=== PATIENT | male | born 1940 | race Caucasian/White ===

== ENCOUNTER 2017-06-08 14:40 | Observation (INO) | payer MEDICARE ==
--- NOTE | 2017-06-08 16:04 | RAD ---
PORTABLE AP CHEST RADIOGRAPH: Date: 06-08-17 History: Nausea, vomiting, vertigo. Comparison: 06-08-17 FINDINGS: Cardiac silhouette and pulmonary vasculature are within normal limits. The lungs are clear. Elevation right hemidiaphragm is again present. Post-surgical change related to anterior cervical fusion noted . Vascular calcification is seen in the thoracic aorta. IMPRESSION: No acute cardiopulmonary process. POS: [facility]
[2017-06-08 16:31] LABS: #Eosinphils 0.1 thou/uL (0.0-0.7); #Lymphocytes 1.7 thou/uL (1.20-3.40); #Monocytes 0.4 thou/uL (0.11-0.59); #Neutrophils 7.1 thou/uL (1.40-6.50); %Basophils 0.2 % (0.0-1.0); %Eosinophils 0.6 % (0.0-10.0); %Lymphocytes 18.2 % (21.0-51.0); %Monocytes 3.8 % (0.0-10.0); %Neutrophils 77.2 % (42.0-75.0); Hemoglobin 15.5 g/dL (14.0-18.0); Mean Corpuscular HGB CONC 33.1 g/dL (32.0-36.0); Mean Corpuscular Hemoglobin 30.8 pg (27.0-31.0); Mean Corpuscular Volume 93.1 fl (80.0-94.0); Mean Platelet Volume 7.8 fL (7.4-10.4); Platelet Count 239 thou/uL (130-400); RBC Distribution Width 12.8 % (11.5-14.5); Red Blood Cell (RBC) Count 5.03 mill/uL (4.70-6.10); White Blood Cell (WBC) Count 9.2 thou/uL (4.8-10.8)
[2017-06-08 17:01] LABS: ALT (SGPT) 13 U/L (8-55); AST (SGOT) 17 U/L (5-34); Alkaline Phosphatase 144 U/L (40-150); Anion Gap 10 mmol/L (10-20); BUN (Urea Nitrogen) 11 mg/dL (8.4-25.7); Bilirubin, Total 0.6 mg/dL (0.2-1.2); CK (CPK) 84 U/L (30-200); Calc. Creatinine Clearance 0 mL/min (70-130); Calcium 9.3 mg/dL (7.8-10.44); Carbon Dioxide 27 mmol/L (23-31); Chloride 106 mmol/L (98-107); Estimated GFR-MDRD 85; Globulin 3.3 g/dL (2.4-3.5); Glucose 105 mg/dL (83-110); Potassium 4.4 mmol/L (3.5-5.1); Protein, Total 7.3 g/dL (5.8-8.1); Sodium 139 mmol/L (136-145)
[2017-06-08 17:03] LABS: CKMB 2.7 ng/mL (0-6.6); Troponin I Less than 0.010 ng/mL (< 0.028)
[2017-06-08] MEDS ORDERED: Ondansetron ODT 4 MG TAB SL PRN (19:39)
[2017-06-08] MEDS ORDERED: Acetaminophen 325 MG TAB PO PRN ×2 (19:39→20:12)
[2017-06-08] MEDS ORDERED: HYDROcodone/Acetaminophen 5/325 mg Tablet PO PRN ×2 (19:39)
[2017-06-08] MEDS ORDERED: Ondansetron HCl/PF 4 MG/2 ML Vial IVP PRN (19:39)
[2017-06-08] MEDS ORDERED: Meclizine HCl 12.5 MG TAB PO PRN (20:12)
[2017-06-08] MEDS ORDERED: Ondansetron ODT 4 MG TAB PO PRN (20:12)
[2017-06-08] MEDS ORDERED: Enoxaparin Sodium 30 MG/0.3 ML SYRINGE SC SCH (20:12)
[2017-06-08] MEDS ORDERED: Dorzolamide HCl/Timolol Maleate 2%/0.5% Ophth Soln 10 ml Bottle EA EYE SCH (21:00)
--- NOTE | 2017-06-08 21:32 | PDOC.EVN ---
Event Note - Event Note Event Note: Attending H&P I personally evaluated the patient and discussed the management with Dr. Gresham. The written H&P is repeated by me. I agree with the History, Examination, Assessment and Plan documented above with any addition or exceptions noted below. While his vertigo may be Benign Postional Vertigo, an acute cerebellar CVA is in the differential dx. MRI planned for tomorrow. he as in A fib at presentation and non compliant with his a-fib meds, he is now in sinus rhythm on telemetry.
[2017-06-08] MEDS: Lisinopril 20 MG TAB PO SCH (21:59)
[2017-06-08] MEDS: Pravastatin Sodium 40 MG TAB PO SCH (22:00)
[2017-06-08] MEDS: Sodium Chloride 0.9% 1,000 ML IV SCH (22:01)
[2017-06-08] MEDS: Brimonidine Tartrate 0.2% Ophth Soln 5 ml Bottle EA EYE SCH (22:01)
[2017-06-08] MEDS: Latanoprost 0.005% Ophth Soln 2.5 ml Bottle EA EYE SCH (22:02)
[2017-06-08 23:05] VITALS: BMI 31.4
--- NOTE | 2017-06-09 02:06 | HP-2 ---
CODE STATUS: FULL. PRIMARY CARE PHYSICIAN: Dr. French. ATTENDING: Dr. Dipak Gauthier. RESIDENT: Dr. Madina Alvarado. CHIEF COMPLAINT: Dizziness. HISTORY OF PRESENT ILLNESS: This is a 76-year-old male with past medical history of atrial fibrillation, hypertension, noncompliant on medications that presents with dizziness. 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 He said that he closed his eyes and sat still for a period of several minutes before it resolved. He continued on with his daily activities and then when he went to get on his ATV to drive off to do something else, the dizziness returned and again presented as if his surroundings were spinning. He again stopped the vehicle and closed his eyes and rested for a period of several minutes and the dizziness did resolve. It is also associated with nausea, but no vomiting was reported. Patient states that years ago he experienced something similar in the past for which he took meclizine at that time and it did seem to resolve the issue. Of note, last night, he states that he felt like there was some fluid in his right ear that did make him feel a bit dizzy as well. He denies any headaches or vision changes, weakness, or slurred speech associated with episode. Currently, he is not experiencing any vertigo. He was sent over from [facility] due to concerns for a posterior infarct secondary to noncompliance with his atrial fibrillation medications and his history of hypertension. PAST MEDICAL HISTORY: 1. Atrial fibrillation. 2. Hypertension. 3. Osteoarthritis. 4. Hyperlipidemia. PAST SURGICAL HISTORY: 1. Hernia repair. 2. Corneal transplant. 3. C-spine fusion. ALLERGIES: Reported allergy includes PRED FORTE. MEDICATIONS: 1. Acetaminophen 325 mg two tablets p.o. q.6 hours p.r.n. 2. Brimonidine tartrate 1 drop each eye b.i.d. 3. Diltiazem HCL extended release 180 mg p.o. at bedtime. 4. Dorzolamide HCL/timolol maleate 1 drop each eye b.i.d. 5. Latanoprost 1 drop each eye at bedtime. 6. Lisinopril 20 mg tablet p.o. at bedtime. 7. Pravastatin 40 mg p.o. at bedtime. FAMILY HISTORY: Noncontributory. SOCIAL HISTORY: The patient denies tobacco, alcohol, or drug use. REVIEW OF SYSTEMS: A 12 point review of systems was performed, all were negative except as listed in the HPI. PHYSICAL EXAMINATION: VITAL SIGNS: Blood pressure 124/77, pulse 68, respiratory rate 21, pulse ox 100 % on 2 liters. GENERAL: Patient is alert and oriented x3, no acute distress. Well-developed, well-nourished, appropriately interactive. HEENT: Pupils are equally round and reactive to light and accommodation. Extraocular muscles intact. Conjunctivae within normal limits. ENT: Tympanic membranes pearly christopher without bulging or erythema. Nasal mucosa within normal limits. Oropharynx within normal limits. NECK: Supple. CARDIOVASCULAR: Irregular rhythm. No murmurs or gallops. Radial and pedal pulses 2+. RESPIRATORY: Normal effort, no retractions, clear to auscultation bilaterally. SKIN: Warm and dry. No cyanosis or lesions. ABDOMEN: Soft, nontender to palpation. Bowel sounds positive in all 4 quadrants. No masses or distended. EXTREMITIES: No clubbing, cyanosis, or edema. MUSCULOSKELETAL: Structure is within normal limits. Tone is within normal limit. Muscle strength 5/5. NEUROLOGIC: No focal deficits. Cranial nerves II-XII intact. GCS 15. There is some nystagmus with horizontal gaze to the left and with rightward tick. PSYCHIATRIC: Appropriate. LABORATORY DATA: 1. CBC reveals white blood count 9.2, hemoglobin 15.5, hematocrit 40.8, platelets 239. 2. CMP: Sodium 140, potassium 4.5, chloride 108, bicarb 19, BUN 14, creatinine 0.98, glucose 142, calcium 9.1, total protein 7.4, albumin 4.2, AST 17, ALT 15, alkaline phosphatase 144, total bilirubin 0.6. 3. CK 2.7, troponin less than 0.010. IMAGIN. Chest x-ray no acute process. 2. Brain CT, mild chronic small vessel disease, no acute intracranial abnormalities. ASSESSMENT AND PLAN: This is a 76-year-old male with past medical history of atrial fibrillation and hypertension, noncompliant on medications, presents with dizziness. 1. Vertigo, likely secondary to benign paroxysmal positional vertigo, but cannot rule out posterior infarct. Patient admitted to telemetry for observation. CT of the brain was negative for any acute findings. Dr. French does indicate it has been going on for several years and it is intermittent and worse with movement. We will schedule meclizine p.r.n. MRI of the brain in the morning to rule out posterior infarct. Patient was not actively having vertigo at this time so deferred HINTs exam. Notified night team that if vertigo returns that it might be worthwhile to perform this exam. Patient did have positive nystagmus with left horizontal gaze. Can attempt Alicia's maneuver in the morning. We will obtain an EKG. A consult has been put in for PT to evaluate and treat patient. 2. Hypertension. Continue home medications. 3. Atrial fibrillation. Patient is noncompliant with anticoagulation. We will start Lovenox and determine a good medication to start patient on for a chcf anticoagulation. We will continue aspirin and diltiazem at this time. 4. Osteoarthritis. Tylenol or ibuprofen as needed for pain. 5. Deep venous thrombosis prophylaxis. Lovenox. DISPOSITION AND LENGTH OF HOSPITAL STAY: 2 days. Symptomatic medication will be provided. History and physical exam as well as management discussed with Dr. Dipak Gauthier. ANN
[2017-06-09] MEDS: Sodium Chloride 0.9% 1,000 ML IV SCH ×2 (05:55→15:25)
--- NOTE | 2017-06-09 06:19 | PDOC.FM ---
- Subjective Subjective: Mr. Palma is feeling well this morning. He is very concerned about cost of hospitalization and inquiring about ability to perform MRI outpatient. He denies any dizziness, N/V or "spells" overnight. This morning, he continues to be symptom free. - Objective MAR Reviewed: Yes Vital Signs & Weight: Vital Signs (12 hours) Temp Pulse Resp BP BP Pulse Ox 06/09/17 05:46 97.5 F L 68 18 122/75 92 L 06/08/17 23:18 98.6 F 76 20 06/08/17 21:59 132/74 06/08/17 21:00 98.6 F 76 20 132/74 94 L Weight Weight 97.704 kg I&O: 06/07/17 06/08/17 06/09/17 06:59 06:59 06:59 Intake Total 1040 Output Total 400 Balance 640 Result Diagrams: 06/08/17 16:23 06/08/17 16:23 EKG Reviewed by me: Yes <Gloria Sood - Last Filed: 06/09/17 09:55> - Objective Vital Signs & Weight: Vital Signs (12 hours) Temp Pulse Pulse Pulse Resp BP BP 06/09/17 11:45 97.5 F L 59 L 18 06/09/17 08:50 62 64 158/80 H 187/88 H 06/09/17 08:00 98.3 F 60 18 06/09/17 07:30 97.5 F L 68 18 06/09/17 05:46 97.5 F L 68 18 BP Pulse Ox 06/09/17 11:45 137/64 92 L 06/09/17 08:50 06/09/17 08:00 164/84 H 93 L 06/09/17 07:30 06/09/17 05:46 122/75 92 L Weight Weight 97.704 kg I&O: 06/08/17 06/09/17 06/10/17 06:59 06:59 06:59 Intake Total 1040 Output Total 400 Balance 640 Result Diagrams: 06/08/17 16:23 06/08/17 16:23 <Aubrey Gaxiola - Last Filed: 06/09/17 13:06> Phys Exam - Physical Examination Constitutional: NAD HEENT: moist MMs, sclera anicteric Neck: supple Respiratory: no wheezing, clear to auscultation bilateral Cardiovascular: RRR, no significant murmur Gastrointestinal: soft, non-tender, no distention, positive bowel sounds Musculoskeletal: no edema, pulses present Neurological: non-focal, moves all 4 limbs CN 2-12 intact. No focal deficits. Cerbellar, Chapman-Hallpike, HINTS all neg Psychiatric: normal affect, A&O x 3 Skin: no rash <Gloria Sood - Last Filed: 06/09/17 09:55> Dx/Plan (1) Atrial fibrillation Code(s): I48.91 - UNSPECIFIED ATRIAL FIBRILLATION Status: Acute - Plan Plan: 1. Vertigo - Jose-Hallpike and HINTS exams negative this morning - Asymptomatic overnight and this morning - Discussed option to perform MRI this hospitalization vs. outpatient and patient strongly desires further OP workup - Continue to monitor this morning with assisted walking - Meclizine PRN - Appreciate case management assistance with financial concerns 2. Atrial fibrillation - Mostly sinus rhythm on telemetry with no RVR on floor - Discussed ongoing anticoagulation and he is reluctant to take Eliquis 2/2 side effects - Patient would like to discuss options with PCP at appointment tomorrow - Encouraged close follow-up with Dr. Gutierrez - Continue ASA 3. HTN - Well-controlled on home regimen of lisinopril and diltiazem 4. HLD - Continue pravastatin 5. H/o corneal transplant - Continue home brimonidine and latanoprost 6. Osteoarthritis - Tylenol PRN PPX: Lovenox <Gloria Sood - Last Filed: 06/09/17 09:55> Attending Addendum - Attending Addendum I personally evaluated the patient and discussed the management with Dr. Sood. I agree with the History, Examination, Assessment and Plan documented above with any addition or exceptions noted below. All symptoms resolved. No cp/sob/n/v/f/c/dysphagia/numbness/weakness/dysphagia. Await MRI. Continue RF mgmt. <Aubrey Gaxiola - Last Filed: 06/09/17 13:06>
[2017-06-09] MEDS: Aspirin 81 mg Enteric Coated Tablet PO SCH (09:20)
[2017-06-09] MEDS: Enoxaparin Sodium 30 MG/0.3 ML SYRINGE SC SCH (09:20)
[2017-06-09] MEDS: Brimonidine Tartrate 0.2% Ophth Soln 5 ml Bottle EA EYE SCH ×2 (09:21→21:22)
--- NOTE | 2017-06-09 19:08 | PDOC.EVN ---
Event Note - Event Note Event Note: Given patient's quick presentation and resolution of symptoms, concern for TIA remains in differential diagnosis and is current clinical diagnosis. Due to patient's history of atrial fibrillation without adequate anticoagulation as a result of Eliquis side effects, age, and comorbidities, Mr. Palma remains at very high risk for thromboembolic events. It is important that he remain on the stroke unit for telemetry monitoring until MRI read is finalized and formal diagnosis can be made. He is at risk for further events, particularly if stroke is confirmed on MRI and close follow-up is being arranged. Pending final MRI read, further recommendations can be made. If MRI results remain unavailable tonight, he will need to stay in house another midnight because it is unsafe to discharge him home with possible stroke diagnosis.
--- NOTE | 2017-06-09 19:34 | MRI ---
NONCONTRAST MRI BRAIN: Date: 06-09-17 History: Posterior stroke. Patient has vertigo. Comparison: CT head 06-08-17. FINDINGS: There are punctate and patchy areas of increased FLAIR and T2 weighted signal intensity in the perive ntricular and subcortical white matter which are nonspecific but likely reflective of moderate chroni c small vessel ischemic changes. There is no evidence of an acute infarction. Specifically, no acute infarction is seen involving the cerebellar hemispheres bilaterally. The septum pellucidum and third ventricle are on the midline. There is mild diffuse cerebral and cerebellar volume loss. The ventricu lar system is normal in size, shape, and position for the degree of sulcal atrophy. Appropriate flow voids are demonstrated at the base of the brain. [place] lenses are absent. The paranasal sinuses and skull base have a normal MRI appearance. Degenera tive changes are seen involving the upper cervical spine, and there is also metallic susceptibility a rtifact seen involving the upper cervical spine likely related to anterior cervical fusion with plate and screws involving the visualized C3-4 level. IMPRESSION: 1. No acute intracranial abnormality is demonstrated. 2. Chronic small vessel ischemic changes. 3. Cerebral and cerebellar volume loss. POS: [facility]
[2017-06-09] MEDS: Pravastatin Sodium 40 MG TAB PO SCH (21:22)
[2017-06-09] MEDS: Lisinopril 20 MG TAB PO SCH (21:22)
[2017-06-09] MEDS: Latanoprost 0.005% Ophth Soln 2.5 ml Bottle EA EYE SCH (21:22)
[2017-06-10 04:44] VITALS: TEMP 97.6
--- NOTE | 2017-06-10 06:23 | PDOC.FM ---
- Subjective Subjective: Feeling well this morning. He reports that he slept well and is asymptomatic this morning. He plans to follow-up with Dr. French and Dr. Gutierrez to continue conversation regarding anticoagulation and risk factor modification. - Objective MAR Reviewed: Yes Vital Signs & Weight: Vital Signs (12 hours) Temp Pulse Resp BP BP Pulse Ox 06/10/17 04:00 97.6 F 60 18 125/59 L 91 L 06/10/17 00:00 97.5 F L 60 20 122/56 L 90 L 06/09/17 21:22 112/64 06/09/17 21:17 97.7 F 64 20 165/78 H 91 L 06/09/17 20:10 97.7 F 64 20 Weight Weight 97.704 kg I&O: 06/08/17 06/09/17 06/10/17 06:59 06:59 06:59 Intake Total 1040 1120 Output Total 400 Balance 640 1120 Result Diagrams: 06/08/17 16:23 06/08/17 16:23 EKG Reviewed by me: Yes Radiology Reviewed by me: Yes <Gloria Sood - Last Filed: 06/10/17 08:26> - Objective Vital Signs & Weight: Vital Signs (12 hours) Temp Pulse Resp BP Pulse Ox 06/10/17 12:00 97.6 F 59 L 22 H 124/75 95 06/10/17 10:42 74 16 166/75 H 06/10/17 08:00 97.6 F 60 18 06/10/17 04:00 97.6 F 60 18 125/59 L 91 L Weight Weight 97.704 kg I&O: 06/09/17 06/10/17 06/11/17 06:59 06:59 06:59 Intake Total 1040 1120 Output Total 400 Balance 640 1120 Result Diagrams: 06/08/17 16:23 06/08/17 16:23 <Aubrey Gaxiola - Last Filed: 06/10/17 13:34> Phys Exam - Physical Examination Constitutional: NAD HEENT: moist MMs, sclera anicteric Neck: supple Respiratory: no wheezing, clear to auscultation bilateral Cardiovascular: RRR, no significant murmur Gastrointestinal: soft, non-tender, no distention, positive bowel sounds Musculoskeletal: no edema, pulses present Neurological: non-focal, normal sensation, moves all 4 limbs Psychiatric: normal affect, A&O x 3 Skin: no rash, normal turgor <Gloria Sood - Last Filed: 06/10/17 08:26> Dx/Plan (1) Atrial fibrillation Code(s): I48.91 - UNSPECIFIED ATRIAL FIBRILLATION Status: Acute (2) TIA (transient ischemic attack) Status: Acute (3) HTN (hypertension) Code(s): I10 - ESSENTIAL (PRIMARY) HYPERTENSION Status: Acute (4) HLD (hyperlipidemia) Code(s): E78.5 - HYPERLIPIDEMIA, UNSPECIFIED Status: Acute (5) Osteoarthritis Code(s): M19.90 - UNSPECIFIED OSTEOARTHRITIS, UNSPECIFIED SITE Status: Acute - Plan Plan: 1. TIA vs. Vertigo vs. Vestibular neuritis - Natalia-Hallpike and HINTS exams negative - Asymptomatic overnight and this morning - MRI negative for acute stroke - Continue to monitor this morning with assisted walking - Symptoms may also be related to corneal transplant and associated vision changes - Meclizine PRN 2. Atrial fibrillation - Mostly sinus rhythm on telemetry with no RVR on floor - Discussed ongoing anticoagulation and he is reluctant to take Eliquis 2/2 side effects - Patient would like to discuss options with PCP at appointment this week - Encouraged close follow-up with Dr. Gutierrez - Continue ASA 3. HTN - Well-controlled on home regimen of lisinopril and diltiazem 4. HLD - Continue pravastatin - Consider transition to atorvastatin 5. H/o corneal transplant - Continue home brimonidine and latanoprost 6. Osteoarthritis - Tylenol PRN PPX: Lovenox Dispo: Plan for D/C mid-day if he remains asymptomatic <Gloria Sood - Last Filed: 06/10/17 08:26> Attending Addendum - Attending Addendum I personally evaluated the patient and discussed the management with Dr. Sood. I agree with and repeated the History, Examination, Assessment and Plan documented above with any addition or exceptions noted below. Doing well this AM. No vertigo, n/v/weakness/numbness. Ambulating about room. Exam unchanged. Ok for discharge with negative MRI and presumed vestibular neuritis. Limitations of MRI noted and discussed. Continue risk factor management. He prefers to have anticoagulation discussion with his PCP and declines any today. <Aubrey Gaxiola - Last Filed: 06/10/17 13:34>
[2017-06-10] MEDS: Aspirin 81 mg Enteric Coated Tablet PO SCH (09:06)
[2017-06-10] MEDS: Enoxaparin Sodium 30 MG/0.3 ML SYRINGE SC SCH (09:06)
[2017-06-10] MEDS: Brimonidine Tartrate 0.2% Ophth Soln 5 ml Bottle EA EYE SCH (09:07)
[2017-06-10 12:05] VITALS: BP 124/75
== END 2017-06-10 12:28 | disposition home or self-care (01) ==
LOC: ERS 14:40 → ERHOLD 17:18 → 2SE 19:25
PROVIDERS: ADMIT Family Medicine; ATTEND Family Medicine
DX: R42 Dizziness and giddiness (principal); I48.91 Unspecified atrial fibrillation; I10 Essential (primary) hypertension; M19.90 Unspecified osteoarthritis, unspecified site; E78.5 Hyperlipidemia, unspecified; Z91.14 Patient's other noncompliance with medication regimen; Z79.899 Other long term (current) drug therapy; Z88.8 Allergy status to other drugs, medicaments and biological substances; Z98.1 Arthrodesis status; Z94.7 Corneal transplant status; Z98.49 Cataract extraction status, unspecified eye; Z98.890 Other specified postprocedural states
CPT/HCPCS: 70551; 71045; 80053; 82550; 82553; 84484; 85025; 93005; 96360; 96361 ×2; 96372 ×3; 97116; 97139 ×3; 99285; G0378; G8978; G8979; G8980; 36415; 93010; J1650

== ENCOUNTER 2017-10-31 10:23 | Emergency (ER) | payer MEDICARE ==
[2017-10-31 10:49] LABS: Hemoglobin 15.1 g/dL (14.0-18.0); Mean Corpuscular HGB CONC 33.7 g/dL (32.0-36.0); Mean Corpuscular Hemoglobin 30.1 pg (27.0-31.0); Mean Corpuscular Volume 89.3 fL (78.0-98.0); Mean Platelet Volume 6.9 fL (7.4-10.4); Platelet Count 259 thou/uL (130-400); RBC Distribution Width 13.3 % (11.5-14.5); Red Blood Cell (RBC) Count 5.02 mill/uL (4.70-6.10); White Blood Cell (WBC) Count 7.6 thou/uL (4.8-10.8)
[2017-10-31 11:08] LABS: ALT (SGPT) 14 U/L (8-55); AST (SGOT) 15 U/L (5-34); Alkaline Phosphatase 119 U/L (40-150); Anion Gap 10 mmol/L (10-20); BUN (Urea Nitrogen) 11 mg/dL (8.4-25.7); Band 1 % (5-11); Bilirubin, Total 0.4 mg/dL (0.2-1.2); CK (CPK) 99 U/L (30-200); Calc. Creatinine Clearance 0 mL/min (70-130); Carbon Dioxide 23 mmol/L (23-31); Chloride 107 mmol/L (98-107); Eosinophils 1 % (0-10); Estimated GFR-MDRD 86; Globulin 3.1 g/dL (2.4-3.5); Glucose 109 mg/dL (83-110); Lipase 39 U/L (8-78); Lymphocytes 30 % (21-51); MDiff Complete? YES; Monocytes 3 % (0-10); Neutrophil 64 % (42-75); Potassium 4.2 mmol/L (3.5-5.1); Protein, Total 7.1 g/dL (5.8-8.1); RBC Morphology Normal; Reactive Lymphocytes 1 % (0-10); Sodium 136 mmol/L (136-145)
--- NOTE | 2017-10-31 11:11 | RAD ---
CHEST 1 VIEW: Date: 10/31/17 HISTORY: Nausea, hypertension, and dehydration. COMPARISON: 06/08/17. FINDINGS: Atherosclerosis of aorta. Normal cardiac silhouette. Pulmonary vessels and hilum are normal. Costophr enic angles are clear. No consolidation or masses. No pneumothorax or osseous abnormalities. IMPRESSION: 1. No acute cardiopulmonary process. 2. Atherosclerosis. POS: [facility]
[2017-10-31 11:12] LABS: CKMB 2.3 ng/mL (0-6.6); Troponin I Less than 0.010 ng/mL (< 0.028)
[2017-10-31 11:41] LABS: INR-International Normal Ratio 1.9; PTT 33.9 SEC (22.9-36.1); Prothrombin Time 21.8 SEC (12.0-14.7)
[2017-10-31 13:00] LABS: Troponin I Less than 0.010 ng/mL (< 0.028)
== END 2017-10-31 13:23 | disposition home or self-care (01) ==
LOC: ERS 10:23
DX: R07.89 Other chest pain (principal); I48.91 Unspecified atrial fibrillation; M19.90 Unspecified osteoarthritis, unspecified site; I10 Essential (primary) hypertension; Z79.82 Long term (current) use of aspirin; Z79.899 Other long term (current) drug therapy
CPT/HCPCS: 36415; 71045; 80053; 82550; 82553; 83690; 84484; 85025; 85610; 85730; 93005

== ENCOUNTER 2022-06-18 10:56 | Emergency (ER) | payer MEDICARE ==
[2022-06-18 11:41] LABS: #Eosinphils 0.2 thou/uL (0.0-0.7); #Lymphocytes 2.4 thou/uL (1.20-3.40); #Monocytes 0.8 thou/uL (0.11-0.59); %Basophils 0.5 % (0.0-1.0); %Eosinophils 1.9 % (0.0-10.0); %Lymphocytes 28.9 % (21.0-51.0); %Monocytes 9.8 % (0.0-10.0); %Neutrophils 58.9 % (42.0-75.0); Hemoglobin 15.4 g/dL (14.0-18.0); Mean Corpuscular HGB CONC 32.7 g/dL (32.0-36.0); Mean Corpuscular Volume 91.7 fl (78.0-98.0); Mean Platelet Volume 7.9 fL (7.4-10.4); Platelet Count 241 10x3/uL (130-400); RBC Distribution Width 14.7 % (11.5-14.5); Red Blood Cell (RBC) Count 5.13 mill/uL (4.70-6.10); White Blood Cell (WBC) Count 8.4 10x3/uL (4.8-10.8)
[2022-06-18 12:06] LABS: ALT (SGPT) 10 U/L (8-55); AST (SGOT) 18 U/L (5-34); Alkaline Phosphatase 119 U/L (40-110); Anion Gap 13 mmol/L (10-20); BUN (Urea Nitrogen) 13 mg/dL (8.4-25.7); Bilirubin, Total 0.8 mg/dL (0.2-1.2); Calc. Creatinine Clearance 0 mL/min (70-130); Calcium 9.3 mg/dL (7.8-10.44); Carbon Dioxide 22 mmol/L (23-31); Chloride 107 mmol/L (98-107); Estimated GFR 67; Glucose 94 mg/dL (83-110); Potassium 4.5 mmol/L (3.5-5.1); Sodium 137 mmol/L (136-145)
== END 2022-06-18 14:17 | disposition home or self-care (01) ==
LOC: ERS 10:56
DX: I48.91 Unspecified atrial fibrillation (principal); I10 Essential (primary) hypertension; Z79.899 Other long term (current) drug therapy; Z79.82 Long term (current) use of aspirin; Z79.01 Long term (current) use of anticoagulants
CPT/HCPCS: 36415; 71045; 80053; 84484; 85025; 93005